=== PATIENT | female | born 1935 | race Caucasian/White ===

== ENCOUNTER 2020-09-26 13:21 | Outpatient (CLI) | payer MEDICARE | END 2020-09-26 13:22 | disposition home or self-care (01) | LOC: BICMAMMO 13:21 | PROVIDERS: ATTEND Internal Medicine Rheumatology | DX: M81.0 Age-related osteoporosis without current pathological fracture (principal); M17.12 Unilateral primary osteoarthritis, left knee | CPT/HCPCS: 77080 ==

== ENCOUNTER 2021-10-26 08:56 | Outpatient (CLI) | payer MEDICARE ==
[2021-10-26] MEDS ORDERED: Iopamidol-370 76% 500 ML 1 ML ONE (10:11)
== END 2021-10-26 08:57 | disposition home or self-care (01) ==
LOC: BICCT 08:56
PROVIDERS: ATTEND Family Medicine
DX: G45.9 Transient cerebral ischemic attack, unspecified (principal)
CPT/HCPCS: 70470; Q9967

== ENCOUNTER 2022-09-28 10:54 | Outpatient (CLI) | payer MEDICARE | END 2022-09-28 10:55 | disposition home or self-care (01) | LOC: BICMAMMO 10:54 | PROVIDERS: ATTEND Internal Medicine Rheumatology | DX: Z13.820 Encounter for screening for osteoporosis (principal); M81.0 Age-related osteoporosis without current pathological fracture | CPT/HCPCS: 77080 ==

== ENCOUNTER 2023-01-17 11:41 | Outpatient (CLI) | payer MEDICARE | END 2023-01-17 11:42 | disposition home or self-care (01) | LOC: BICRAD 11:41 | PROVIDERS: ATTEND Internal Medicine Rheumatology | DX: R06.00 Dyspnea, unspecified (principal) | CPT/HCPCS: 71046 ==